=== PATIENT | male | born 2000 | race Caucasian/White ===

== ENCOUNTER 2024-08-21 20:06 | Emergency (ER) | payer MEDICAID, SELFPAY ==
--- NOTE | ~2024-08-21 | XR_ITS ---
EXAMINATION: XR FOOT, LEFT CLINICAL INFORMATION: Pain COMPARISON: None available. TECHNIQUE: AP, lateral, and oblique views of the left foot. FINDINGS: No fracture. There is a prominent concavity of the base of the proximal phalanx of the great toe perhaps congenital or related to old fracture. No joint space narrowing. Mild hallux valgus. Remaining bone and joints soft tissues unremarkable. XR/XR foot LT min 3V IMPRESSION: 1. No acute abnormality. 2. Mild hallux valgus. 3. Concavity of the base of the proximal phalanx of the great toe perhaps congenital or related to old fracture. Electronically signed by: Miguel Ángel Solano MD 08/21/2024 09:10 PM EDT RP
--- NOTE | 2024-08-21 20:35 | ED_ITS ---
HPI - Extremity Injury (Lower) General Chief Complaint: Extremity Injury, Lower Stated Complaint: Bilateral foot pain Time Seen by Provider: 08/21/24 22:13 Source: patient Mode of arrival: ambulatory Limitations: no limitations History of Present Illness ED Provider: margaret SMYTH Narrative: Patient complaining of bilateral plantar pain for last few weeks does stand for long hours no recent trauma Related Data Previous Rx's ?Medication ?Instructions ?Recorded ibuprofen 600 mg tablet 600 mg PO Q6H PRN fever or pain 08/21/24 #30 tabs Allergies Allergy/AdvReac Type Severity Reaction Status Date / Time No Known Allergies Allergy Verified 08/21/24 20:38 Review of Systems 2 Review of Systems: Yes all other systems are reviewed and are negative PMFSH Social History Social History Do you have a plan to hurt others: No Plan Physical Exam 2 Vital Signs: Vital Signs: Last Vital Signs Temp 97.8 F 08/21/24 20:36 Pulse 75 08/21/24 20:36 Resp 20 08/21/24 20:36 BP 126/75 08/21/24 20:36 Pulse Ox 99 08/21/24 20:36 O2 Del Method Room Air 08/21/24 20:36 BMI result Body Mass Index 18.8 Extrem: Ankle/foot/toe images: 1. Tenderness in mid sole 2. Tenderness in mid sole Course Course Course Narrative: This is a Rapid Medical Exam performed in triage by Елена Juarez PA-C. Full HPI, ROS and PE to be performed by primary ED provider. 24-year-old male with no significant past medical history presenting to the ED c/o bilateral plantar foot pain left greater than right x1 month. Patient reports that it hurts to bear weight. PE: Mild tenderness to plantar aspect left foot. No erythema ecchymosis, neurovascularly intact. Plan: X-ray Medical Decision Making Medical Decision Making [facility] Narrative: Clinically patient has mild plantar fasciitis advised not to stand for long hours advised plantar exercises Discharge Plan Discharge Clinical Impression: Plantar fasciitis of left foot Patient Disposition: Home, Self-Care Instructions: Plantar Fasciitis (ED), Plantar Fasciitis Exercises (ED) Additional Instructions: Care as advised Avoid standing for longer hours Ibuprofen for pain Prescriptions: New ibuprofen 600 mg tablet 600 mg PO Q6H PRN (Reason: fever or pain) Qty: 30 0RF
[2024-08-21 20:36] VITALS: BP 126/75; PULSE 75; RESP 20; TEMP 36.6; O2SAT 99; BMI 18.8
[2024-08-21 22:41] VITALS: BP 126/75; PULSE 75; RESP 20; TEMP 36.6; O2SAT 99
[2024-08-21] MEDS: Ibuprofen 600 MG TABLET PO (22:42)
== END 2024-08-21 23:01 | disposition home or self-care (01) ==
PROVIDERS: Emergency Provider Internal Medicine
DX: M72.2 Plantar fascial fibromatosis (principal); M79.672 Pain in left foot
CPT/HCPCS: 73630; 99283